=== PATIENT | male | born 1935 | race Caucasian/White ===

== ENCOUNTER 2022-04-08 21:58 | Emergency (ER) | payer MEDICARE ==
[~2022-04-08] VITALS: Ht 170.2 cm; Wt 90.7 kg
[2022-04-08 23:19] VITALS: BP 170/82
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
[2022-04-08] MEDS ORDERED: IBUPROFEN 400 MG TABLET ONE (23:35)
[2022-04-09] MEDS ORDERED: IBUPROFEN 400 MG TABLET PO ONE
--- NOTE | 2022-04-09 00:15 | NUR ---
PT RETURNED TO ER BED [address]
--- NOTE | 2022-04-09 02:25 | NUR ---
Patient discharged to home in stable condition. Written and verbal after care instructions given. Patient verbalizes understanding of instruction.
== END 2022-04-09 02:30 | disposition home or self-care (01) ==
LOC: ER 22:09
DX: S33.5XXA Sprain of ligaments of lumbar spine, initial encounter (principal); S43.401A Unspecified sprain of right shoulder joint, initial encounter; S09.90XA Unspecified injury of head, initial encounter; I10 Essential (primary) hypertension; Z98.890 Other specified postprocedural states; V49.59XA Passenger injured in collision with other motor vehicles in traffic accident, initial encounter; Y93.89 Activity, other specified; Y92.413 State road as the place of occurrence of the external cause; Y99.8 Other external cause status
CPT/HCPCS: 70450-TC; 72131-TC; 73030-TC